=== PATIENT | female | born 1975 | race Caucasian/White ===

== ENCOUNTER → 2023-02-26 | Outpatient (CLI) | payer OTHER, SELFPAY ==
--- NOTE | 2023-02-26 13:16 | VDLE_ITS ---
Reason For Study: LOCALIZED SWELLING RIGHT GSV is normal. CFV is compressible, spontaneous, phasic, competent and demonstrates normal augmentation. FV is compressible, spontaneous, phasic, competent and demonstrates normal augmentation. POP V is compressible, spontaneous, phasic, competent and demonstrates normal augmentation. T/P Trunk is compressible. PTV is compressible. RT PerV is compressible. NON-VASCULAR structure on anterior knee measuring 1.57 x 0.47 in transverse. NON- VASCULARE continues down below knee in saggital plane. Procedure This is a venous duplex using B-mode, color flow and spectral Doppler. Exam performed in department. A preliminary report was called and/or faxed to Dr. Mcnamara @ [phone] & Dr. Croft @ [phone]. VL/Venous Duplex US, Unilateral Interpretation Summary Deep veins of the right lower extremity are patent and compressible segmentally . There is no evidence of right lower extremity deep vein thrombosis. Valvular competence radha ears intact within the proximal deep venous system on the right . The right great saphenous vein a ppears patent and compressible segmentally. A non-vascular structure is noted on the right anteri or knee, measuring 1.57 cm x 0.47 cm. This may represent a hematoma or seroma. Clinical correlatio n is advised. Ordering Physician: Van Mcnamara Referring Physician: Blanca Croft Performed By: Chelsea Irwin, EFREN, RVT
== END | disposition home or self-care (01) ==
PROVIDERS: PCP Nurse Practitioner Family; Referring Provider Specialist; Visit Provider Specialist
DX: R22.41 Localized swelling, mass and lump, right lower limb (principal)
CPT/HCPCS: 93971

== ENCOUNTER 2023-03-20 05:59 | Day surgery (SDC) | payer OTHER, SELFPAY ==
[2023-03-20 06:32] VITALS: BP 149/79; PULSE 74; RESP 16; TEMP 36.3; O2SAT 98; BMI 43.2
[2023-03-20] MEDS: Lactated Ringers 1,000 ML 15 ML IV (06:41)
[2023-03-20 07:03] LABS: Internal QC Validated? YES +Cl - CLEAR BKGD; Pregnancy, Urine Negative Negative
--- NOTE | 2023-03-20 07:13 | HP.PCM_ITS ---
History and Physical Date of Admission: 03/20/23 [facility] [address] [place] [address] OFFICE VISIT Date of Service: 02/12/23 MR#: [id number] Acct: [id number] Name: VICTOR HUGO MYERS Rep #: [id number] : 1975 Provider: Dr. Ze Lockhart DO Age/Sex: 47/F Location: [facility] [place] Status: Signed Intake Vital Signs 02/02/2309:01 Height 5 ft 6 in Weight: 266 lb BMI 42.9 Intake Visit Reasons: bi lat hands Chief Complaint: Bilateral hands Principal Gifts Officer Required: No Accompanied by: Is patient in pain?: Yes Pain scale (1-10): 3 Allergies No Known Allergies Allergy (Unverified 02/12/23 15:45) Medications ascorbate calcium (vitamin C) 500 mg tablet 500 mg PO DAILY 01/03/23 [History Confirmed 02/12/23] cholecalciferol (vitamin D3) 10 mcg (400 unit) capsule 10 mcg PO DAILY 01/03/23 [History Confirmed 02/12/23] fluoxetine 20 mg capsule cap PO 01/03/23 [History Confirmed 02/12/23] losartan 50 mg-hydrochlorothiazide 12.5 mg tablet ea PO 01/03/23 [History Confirmed 02/12/23] meloxicam 7.5 mg tablet ea PO 01/03/23 [History Confirmed 02/12/23] venlafaxine 75 mg capsule,extended release 24 hr 75 mg PO 01/03/23 [History Confirmed 02/12/23] vitamin B complex (B Complex-Vitamin B12 tablet) 1 tab PO DAILY 01/03/23 [History Confirmed 02/12/23] hydrocodone-acetaminophen 5-325mg 5mg-325mg tab PO 02/02/23 [History Confirmed 02/12/23] PFSH Surgical History Hx of cholecystectomy Social History (Updated 02/12/23 @ 15:47 by Deepa Pate) Smoking Status: Never smoker alcohol intake: current alcohol intake frequency: holidays/special occasions only substance use type: does not use what type of physical activity do you participate in: none do you feel safe at home: Yes HPI bi lat hands Details: Parts of this documentation were recorded by a scribe, this documentation accurately reflects the service provided and the decisions made by me, Dr. Ze Lockhart, 02/12/23 0856. VICTOR HUGO MYERS is a 47 year old F here today for B/L carpal tunnel syndrome that has worsened over the last 4 months. Intermittent frequent numbness, tingling to B/L hands and achiness to wrists. Constant weakness to B/L hands. Moderate to severe pain B/L elbows at night that is aching and stabbing. Pain exacerbated with use of hands such as typing or writing. Some relief with stretching or repositioning. Rates pain 2 out of ten today. Nerve testing at [facility] at 02/05/23. She has been using a wrist brace for a month on the right side without releif. SHe has been taking meloxicam but has tried ibuprofen as well. Numbess and tingling into the right and left 1st through 3rd fingers. Ortho Exam General General: Yes no acute distress Neurologic: Yes alert and Yes oriented x3 Psychologic: Yes reasonable and appropriate Right Wrist/Hand Skin/Wound: Yes CDI, No Swelling, No Ecchymosis and Yes capillary refill normal Right Wrist: Yes Durken's Test, Tinel's and Phalen's; No Thenar Atrophy or Hypothenar Atrophy Left Wrist/Hand Skin/Wound: Yes CDI, No Swelling, No Ecchymosis, Yes nail intact and Yes capillary refill normal Left Wrist: Yes Durken's Test, Yes Tinel's and Yes Phalen's; No Thenar Atrophy and No Hypothenar Atrophy Head: Normocephalic Atraumatic Chest: symmetrical rise, non-labored breathing, no audible wheeze Abdomen: no guarding, non-rigid Supplemental Info Patient did have x-ray of her cervical spine demonstrating degenerative changes however these are on a disc and I do not have the report or the images 02/05/2023 EMG bilateral upper extremity: Right median mononeuropathy consistent with moderate to severe carpal tunnel syndrome. Left median mononeuropathy consistent with diagnosis of moderate carpal tunnel syndrome. No cervical radiculopathy no myopathic features 02/02/2023 x-ray right knee: There is medial joint space narrowing 01/01/2023 MRI right knee from [facility] sports medicine: There is a medial meniscal radial posterior root tear. Medial compartment diffuse high- grade chondromalacia. Patellar medial facet chondral fissures and flaps. Lateral subluxation of the patella Coding Level of Care Code Off vis,est,level 4 Diagnoses Carpal tunnel syndrome on both sides G56.03 Assessment and Plan Assessment and Plan (1) Carpal tunnel syndrome on both sides: Status: Acute Plan Patient educated that her EMG shows right moderate to severe carpal tunnel and left moderate carpal tunnel syndrome. Patient educated that the occasional numbness and tingling into the elbows may or may not subside with the carpal tunnel release or the numbness into the elbow may remain and if the pain/numbness doesn't subside after the CTR then there is another cause to the numbness and pain. Recommended right carpal tunnel release since she has tried and failed conservative care including NSAIDs and bracing and severity on EMG, Reviewed the pre-operative plans with the patient. Risks and benefits of the procedure were fully explained, including but not limited to infection, incisional hypersensitivity and pillar pain for several months neurovascular injury, continued pain, arthritis, stiffness, need for further surgery, re- injury, DVT, PE, general risks of anesthesia. The patient understands all the risks and does wish to proceed with written consent for right carpal tunnel release and left carpal tunnel injection. Discussed the goal of surgery is to prevent worsening of symptoms. Discussed the lifting restrictions. 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 She is having a right knee scope Sunday and will be on crutches for a couple days post op. once she feels that she is recovered from the right knee scope then she can proceed with right CTR. She wishes to proceed with the surgery on 03/20/23. Follow up 2 weeks post op or sooner if pain, swelling, numbness or associated symptoms, or concerns develop. All questions answered. Patient in agreement of plan. 02/12/23 1634 <Electronically signed by Ze Lockhart DO> Date Ze Lockhart DO Cosigner Signature: Date (if applicable) I have examined the patient and the H&P has been reviewed. There are no clinical changes since date of exam.
[2023-03-20] MEDS: Cefazolin 2 GM in 0.9% Normal Saline 100 ML IV (07:29)
[2023-03-20] MEDS: Lidocaine 1%/Epi 1:200 (30ml) 30 ML AMPUL (07:48)
[2023-03-20] MEDS: MethylPREDNISolone Acetate 40 MG/ML Vial IM (08:01)
--- NOTE | 2023-03-20 08:05 | PCM.OP.BLANK ---
Operative Report Date of Procedure: 03/20/23 Preoperative diagnosis; bilateral carpal tunnel syndrome Postoperative diagnosis; same Procedure: 1 right open carpal tunnel release 2. Left carpal tunnel injection Anesthesia: Local with MAC Tourniquet time; 13 minutes 250 mm Hg Complications: None Indication for procedure; This is a 47-year-old female with long-standing symptoms consistent with carpal tunnel syndrome the patient did have electrodiagnostic evidence of this and has failed conservative treatment. Risks benefits and alternatives were reviewed including risks of bleeding infection nerve artery tissue damage need for further surgery and continued pain and symptoms, hypersensitivity to scar and Pillar pain. Procedure; The patient was met in the preoperative holding area the operative extremity was identified by both patient and physician and was marked the patient was met by anesthesia and brought back to the operating room and transferred to the operating table in the supine position. Anesthesia was started. A well-padded tourniquet was placed on the operative upper extremity. The patient was prepped and draped in the usual sterile fashion. A timeout was called to ensure the proper patient procedure and extremity were being contemplated. 1% lidocaine with epinephrine was injected into the incisional area. An Esmarch was used to exsanguinate the extremity. The tourniquet was inflated to 250 mmHg. A midline incision was made with a 15 blade scalpel between the thenar and hypothenar eminence. This was carried down through the skin and subcutaneous tissue. Ivan retractors were then used, a deep blade scalpel was used to make a deep incision in the palmar aponeurosis. The ivan retractors were then placed deep to this and the transverse carpal ligament was identified a perforation was made with a scalpel and a Littler scissors were used to complete the release of the transverse carpal ligament distally under direct visualization with the tips facing ulnarly until the perivascular fat was reached. Then turning our attention proximally using a tension slide technique the proximal extent of the transverse carpal ligament was released . There was noted to be hypertrophy of the transverse carpal ligament. The wound was thoroughly irrigated and was closed with 4-0 nylon vertical mattress stitches. Dressing was applied in the form of xeroform 4 x 4, web roll and an lakeisha wrap. Tourniquet was let down there is no intraoperative complications. The left hand carpal tunnel area was prepped with alcohol and injected with 1/2 cc of 40 mg/cc Depo-Medrol and 1/2 cc 0.25% bupivacaine plain Band-Aid was applied. patient tolerated the procedure well and was transferred to the PACU. All counts were correct.
--- NOTE | 2023-03-20 08:07 | EX.PCM.DISCH ---
Discharge Instructions Diet Discharge Diet: No restrictions Dressing / Incision Call your doctor if you observe: Shortness of breath and Chest pain Additional Dressing/Incision Instructions:: Ice and elevate operative extremity next 72 hours. Keep dressing on clean and dry for 48 hours then may remove and allow warm soapy water to rinse over incision but do not submerge until sutures are out. Then apply bandaid over incision and change daily. encourage finger range of motion. Not lift more than 1/2 pound. Minimize narcotic use only as needed and directed, may use OTC NSAID and Tylenol to supplement/substitute for pain control. Follow Up Care Please Follow Up With: Ze Lockhart DO When: 2 weeks Test Results: Test results from this visit will be discussed in further detail at your follow-up appointment, if applicable. Discharge Plan Admission Primary Reason for Your Visit: Right open carpal tunnel release Attending Provider: Ze Lockhart Primary Care Provider: Blanca Croft NP Discharge Orders/Prescriptions Prescriptions: New hydrocodone-acetaminophen 5-325 mg tablet 1 - 2 tab PO Q4H PRN (Reason: pain) 4 Days Qty: 14 0RF Discontinued hydrocodone-acetaminophen 5-325 mg tablet 1 tab PO PRN PRN (Reason: pain) No Action fluoxetine 20 mg capsule 20 mg PO DAILY losartan-hydrochlorothiazide 50-12.5 mg tablet 1 tab PO DAILY Patient Comments: TAKE 1 TABLET BY MOUTH ONCE DAILY meloxicam 7.5 mg tablet 7.5 mg PO BID Patient Comments: TAKE 1 TABLET BY MOUTH TWICE DAILY venlafaxine 75 mg capsule,extended release 24hr 75 mg PO DAILY cholecalciferol (vitamin D3) 10 mcg (400 unit) capsule 10 mcg PO DAILY vitamin B complex [B Complex-Vitamin B12] Tablet 1 tab PO DAILY ascorbate calcium (vitamin C) 500 mg tablet 500 mg PO DAILY Other Ambulatory Orders: ,Urine (Routine) Timeframe: [id number] Facility: [facility] - Location: Laboratory Ordered By: Dr. Joselito Lan Referrals / Follow Up: Blanca Croft NP, [employer] [Primary Care Provider] - Disposition Disposition (needs filled in before D/C Order can be placed): Home, Self Care
[2023-03-20 08:10] VITALS: BP 113/60; BP 149/79; PULSE 80; RESP 16; TEMP 36.5; O2SAT 92
[2023-03-20 08:15] VITALS: BP 111/72; BP 149/79; PULSE 75; RESP 16; O2SAT 94
[2023-03-20 08:20] VITALS: BP 113/80; BP 149/79; PULSE 83; RESP 16; O2SAT 95
[2023-03-20 08:25] VITALS: BP 117/58; BP 149/79; PULSE 78; RESP 16; TEMP 36.3; O2SAT 94
[2023-03-20 08:44] VITALS: BP 149/79
== END 2023-03-20 09:13 | disposition home or self-care (01) ==
LOC: SDC 05:59 → AC 06:01
PROVIDERS: Anesthesiology; PCP Nurse Practitioner Family; Referring Provider Orthopaedic Surgery; Visit Provider Orthopaedic Surgery
PROC: (CPT 64721; principal; 2023-03-20 07:15)
DX: G56.03 Carpal tunnel syndrome, bilateral upper limbs (principal); I10 Essential (primary) hypertension; Z79.899 Other long term (current) drug therapy
CPT/HCPCS: 64721; 20526; 01810; 81025; J7120; J2405

== ENCOUNTER 2024-06-03 08:50 | Day surgery (SDC) | payer OTHER, SELFPAY ==
[2024-06-03 09:15] VITALS: BP 138/83; PULSE 70; RESP 16; TEMP 35.9; O2SAT 98; BMI 43.7
[2024-06-03 09:33] LABS: Internal QC Validated? YES +Cl - CLEAR BKGD; Pregnancy, Urine Negative Negative
--- NOTE | 2024-06-03 09:40 | PRE.ANES_ITS ---
ASA Classification* ASA Classification ASA Classification: 3 Assessment & Plan Anesthesia* Anesthesia Assessment Anesthesia Assessment: Discussed sedation and/or anesthesia options, risks, benefits, and alternatives with patient/parents/legal guardian/POA. Questions invited. The patient/parents/legal guardian/POA seems to understand and agrees to proceed with anesthesia plan. Reviewed the physical assessment, medical history, allergy history and patient home medications list prior to surgery/procedure/anesthetic and documented any changes. Performed airway and anesthesia risk assessments. 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 When Was Last Pacemaker Check QUESTION #4 FULL TEXT: You/Your Family Experience fever (hyperthermia) with Anesthesia Last Oral Intake Last Oral intake: Last Oral Intake NPO since 19:00 06/03/24 09:15 Meds taken in AM with sips of No 06/03/24 09:15 water? Meds patient instructed to take am of surgery PONV PONV - dairy management specialist: PONV - dairy management specialist Female Yes 05/22/24 14:58 HX of Motion Sickness No 05/22/24 14:58 HX of N/V After Surgery No 05/22/24 14:58 Non-Smoker Yes 05/22/24 14:58 Duration of Surgery greater No 05/22/24 14:58 than 60 minutes Number of Risk Factors 2 05/22/24 14:58 PONV Score Moderate Risk 05/22/24 14:58 Height & Weight Height & Weight: Anesthesia: Height & Weight Height 5 ft 6 in 06/03/24 09:15 Weight: 123 kg 06/03/24 09:15 Body Mass Index (BMI) 43.7 06/03/24 09:15 Respiratory Assessment Respiratory Assessment - dairy management specialist: Respiratory Tract Infection Hx - dairy management specialist Hx Respiratory Tract Infection No 05/22/24 14:58 STOP Sleep Apnea STOP Sleep Apnea - dairy management specialist: STOP Sleep Apnea - dairy management specialist Hx Hypertension Yes: CONTROLLED WITH MED 05/22/24 14:58 Hx Sleep Apnea No 05/22/24 14:58 CPAP BIPAP Do you snore loudly (louder Yes 05/22/24 14:58 than talking or can be heard Do you often feel tired/ Yes 05/22/24 14:58 fatigued/ sleepy during daytime? Has anyone observed you stop No 05/22/24 14:58 breathing during sleep? STOP Results Positive 05/22/24 14:58 QUESTION #5 FULL TEXT : Do you snore loudly (louder than talking or can be heard through closed doors)? 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 Specify any problems Hx of Preganancy in last 3 No 05/22/24 14:58 Months Nurse Filling Out Transfusion DSCHRIBER 05/22/24 14:58 & Questions: Date: 05/22/24 05/22/24 14:58 Time: 14:59 05/22/24 14:58 Patient unable to answer at this time (ie. confused, unrespo /Reproduction History /Reproductive History - dairy management specialist: /Reproductive Hx- dairy management specialist Hx Now Gestational Age (in weeks): EDC: Hx Hx Para Hx Section SAB No 05/22/24 14:58 Active Medications Active Medications: Current Medications Generic Name Dose Route Start Last Admin Trade Name Freq PRN Reason Stop Dose Admin Cefazolin Sodium 3 gm/ N/A 30 mls @ 600 mls/hr 06/03/24 10:40 IV 06/03/24 10:42 [facility] Medical History Trigger thumb, right thumb Impingement of left shoulder Left shoulder pain Wears glasses Depression Anxiety Alcohol use Arthritis Back pain Non-smoker History of pain when walking History of echocardiogram Hypertension Home Medications ?Medication ?Instructions ?Recorded ?Last Taken ?Type ascorbate calcium (vitamin C) 500 500 mg PO DAILY 01/03/23 05/28/24 History mg tablet cholecalciferol (vitamin D3) 10 10 mcg PO DAILY 01/03/23 05/28/24 History mcg (400 unit) capsule losartan 50 mg-hydrochlorothiazide 1 tab PO DAILY 01/03/23 06/02/24 History 12.5 mg tablet vitamin B complex (B 1 tab PO DAILY 01/03/23 05/28/24 History Complex-Vitamin B12 tablet) magnesium 250 mg tablet 250 mg PO DAILY 07/06/23 05/28/24 History glucosamine-chondroitin 250 mg-200 1 tab PO BID 05/14/24 05/28/24 History mg tablet (Osteo Bi-Flex) meloxicam 7.5 mg tablet 15 mg PO DAILY 05/14/24 05/28/24 History potassium chloride 20 mEq 20 meq PO BID 06/03/24 06/02/24 History tablet,extended release (K-Tab) Allergy/AdvReac Type Severity Reaction Status Date / Time No Known Allergies Allergy Verified 06/03/24 09:13 Surgical History Hx of foot surgery History of carpal tunnel surgery of right wrist History of meniscectomy of right knee Hx of wisdom tooth extraction Hx of cholecystectomy Social History Smoking Status: Never smoker alcohol intake: current alcohol intake frequency: holidays/special occasions only substance use type: does not use what type of physical activity do you participate in: none do you feel safe at home: Yes Review of Systems (Anesthesia) ROS Narrative System reviewed and no additional complaints, except as documented.
[2024-06-03 09:45] VITALS: BP 138/83; PULSE 70; RESP 16; TEMP 35.9; O2SAT 98
--- NOTE | 2024-06-03 09:55 | PCM.HP.BLA ---
History and Physical Date of Admission: 06/03/24 [facility] [id number] [place] [address] OFFICE VISIT Date of Service: 05/14/24 MR#: [id number] Acct: [id number] Name: VICTOR HUGO MYERS Rep #: [id number] : 1975 Provider: Dr. Ze Lockhart DO Age/Sex: 48/F [place] [facility] [place] Status[place] Signed Intake Vital Signs 03/10/2408:12 Height 5 ft 6 in Weight: 284 lb 4 oz BMI 45.8 Intake Visit Reasons: LEFT WRIST Accompanied by: Self Is patient in pain?: Yes Pain scale (1-10): 2 Allergies No Known Allergies Allergy (Verified 05/14/24 08:18) Medications ?Medication ?Instructions ?Recorded ?Confirmed ?Type ascorbate calcium (vitamin C) 500 500 mg PO DAILY 01/03/23 03/10/24 History mg tablet cholecalciferol (vitamin D3) 10 10 mcg PO DAILY 01/03/23 03/10/24 History mcg (400 unit) capsule losartan 50 mg-hydrochlorothiazide 1 tab PO DAILY 01/03/23 03/10/24 History 12.5 mg tablet vitamin B complex (B 1 tab PO DAILY 01/03/23 03/10/24 History Complex-Vitamin B12 tablet) magnesium 250 mg tablet 250 mg PO DAILY 07/06/23 03/10/24 History glucosamine-chondroitin 250 mg-200 1 tab PO .BID 05/14/24 05/14/24 History mg tablet (Osteo Bi-Flex) meloxicam 7.5 mg tablet 15 mg PO ONCE 05/14/24 05/14/24 History PFSH Medical History Trigger thumb, right thumb Impingement of left shoulder Left shoulder pain Wears glasses Depression Anxiety Alcohol use Arthritis Back pain Non-smoker History of pain when walking History of edema History of echocardiogram Hypertension Surgical History Hx of foot surgery History of meniscectomy of right knee Hx of wisdom tooth extraction Hx of cholecystectomy Social History Smoking Status: Never smoker alcohol intake: current alcohol intake frequency: holidays/special occasions only substance use type: does not use what type of physical activity do you participate in: none do you feel safe at home: Yes HPI LEFT WRIST Details: This documentation accurately reflects the service provided and the decisions made by me, Dr. Ze Lockhart, DO 05/14/24 075. Part of today?s visit was documented by [ ], acting as scribe. VICTOR HUGO MYERS is a 48 year old F here today for Left Wrist. Patient states that her wrist pain has been going for a year. Patient states it wasn't as bad as her right so she didn't want to do anything about it. Patient now is ready to get surgery done for it. Patient is having numbness, tingling and pain in her wrist. Patient states that it is waking her up in the middle of the night and she is having more pain frequently during the day. 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 Patient did have a anglican doll test on her left wrist last year when they did her right and it shows moderate and her right wrist was severe. Ortho Exam General General: Yes no acute distress Neurologic: Yes alert and Yes oriented x3 Psychologic: Yes reasonable and appropriate Right Wrist/Hand Skin/Wound: No Swelling and No Ecchymosis WRIST: incision healed. Left Wrist/Hand Skin/Wound: No CDI, No Swelling, No Ecchymosis and No erythema Left Wrist: Yes ROM-Extension 0-60, Yes ROM-Flexion 0-80, Yes ROM-Pronation 0-80, Yes ROM-Supination 0-90, Yes Durken's Test, Yes Tinel's and Yes Phalen's; No Thenar Atrophy and No Hypothenar Atrophy WRIST: good wrist range of motion, able to make a first full finger flexion extension brisk capillary refill Constitutional: Well-developed; well-nourished; in no acute distress Eyes: No jaundice ENT: Nares patent; no obvious deformity Cardiovascular: No cyanosis; clubbing; or edema Lymphatic: No adenopathy in area of examination Skin: No rashes or lesions in the area of examination and intact Neurologic: Alert and oriented x 3 Psychiatric: Mood and affect appropriate Supplemental Info 03/10/2024 x-ray lumbar spine:Severe multilevel facet arthrosis, advanced L5-S1 degenerative disc disease moderate L4-L5 degenerative disc disease 03/10/2024 x-ray right hip: Preserved joint space no acute finding 03/20/2023 : Dr. Lockhart Procedure: 1 right open carpal tunnel release 2. Left carpal tunnel injection Patient did have x-ray of her cervical spine demonstrating degenerative changes however these are on a disc and I do not have the report or the images 02/05/2023 EMG bilateral upper extremity: Right median mononeuropathy consistent with moderate to severe carpal tunnel syndrome. Left median mononeuropathy consistent with diagnosis of moderate carpal tunnel syndrome. No cervical radiculopathy no myopathic features 02/02/2023 x-ray right knee: There is medial joint space narrowing 01/01/2023 MRI right knee from [facility] sports medicine: There is a medial meniscal radial posterior root tear. Medial compartment diffuse high-grade chondromalacia. Patellar medial facet chondral fissures and flaps. Lateral subluxation of the patella Coding Level of Care Code Off vis,est,level 4 Diagnoses Carpal tunnel syndrome on both sides G56.03 Assessment and Plan Assessment and Plan (1) Carpal tunnel syndrome on both sides: Status: Acute Plan Spoke with the patient about the anatomy of the hand and wrist. Spoke with her about the Left carpal tunnel release and recovery. She has a half pound restriction for 2 weeks and then a 5 pound restriction for 1 week. She should work on range of motion of her fingers immediately to prevent stiffness. She is able to drive if she can safely control the vehicle. We will schedule the patient for surgery on 06/03/24. Reviewed the pre-operative plans with the patient. Risks and benefits of the procedure were fully explained, including but not limited to infection, neurovascular injury, continued pain, arthritis, stiffness, need for further surgery, re-injury, DVT, PE, general risks of anesthesia, incisional hypersensitivity and pillar pain continued symptoms. The patient understands all the risks and does wish to proceed with written consent. Follow up for 2 week post op or sooner if pain, swelling, numbness or associated symptoms, or concerns develop. All questions answered. Patient in agreement of plan. 05/14/24 0908 <Electronically signed by Ze Lockhart DO> Date I have examined the patient and the H&P has been reviewed. There are no clinical changes since date of exam. Ze Abebe Signature: Date (if applicable)
[2024-06-03] MEDS: Cefazolin 3 GM in Syringe 1 EACH IV (10:32)
[2024-06-03] MEDS: Bupiv/Epi 0.25% 30 ML Vial (10:44)
--- NOTE | 2024-06-03 11:02 | PCM.OPRPT ---
Operative Report (Standard) Operative Information Surgery/Procedure Performed: Left carpal tunnel Surgeon: Ze Lockhart Date of Procedure: 06/03/24 Procedure Start Time: 10:45 Procedure Stop Time: 10:58 Pre-Operative Diagnosis: Left carpal tunnel Post-Operative Diagnosis: Same Select all DRAINS/GRAFTS/IMPLANTS that apply: None Type of Anesthesia: Local MAC and MAC Estimated Blood Loss: 1 Specimen collected: No Description of surgery: Preoperative diagnosis; left carpal tunnel syndrome Postoperative diagnosis; same Procedure: Left open carpal tunnel release Anesthesia: Local with MAC Tourniquet time; 12 minutes 250 mm Hg Complications: None Indication for procedure; This is a 48-year-old female with long-standing symptoms consistent with carpal tunnel syndrome the patient did have electrodiagnostic evidence of this and has failed conservative treatment. Risks benefits and alternatives were reviewed including risks of bleeding infection nerve artery tissue damage need for further surgery and continued pain and symptoms, hypersensitivity to scar and Pillar pain. Procedure; The patient was met in the preoperative holding area the operative extremity was identified by both patient and physician and was marked the patient was met by anesthesia and brought back to the operating room and transferred to the operating table in the supine position. Anesthesia was started. A well-padded tourniquet was placed on the operative upper extremity. The patient was prepped and draped in the usual sterile fashion. A timeout was called to ensure the proper patient procedure and extremity were being contemplated. 0.5 percent Marcaine with epinephrine was injected into the incisional area. An Esmarch was used to exsanguinate the extremity. The tourniquet was inflated to 250 mmHg. A midline incision was made with a 15 blade scalpel between the thenar and hypothenar eminence. This was carried down through the skin and subcutaneous tissue. Ivan retractors were then used, a deep blade scalpel was used to make a deep incision in the palmar aponeurosis. The ivan retractors were then placed deep to this and the transverse carpal ligament was identified a perforation was made with a scalpel and a Littler scissors were used to complete the release of the transverse carpal ligament distally under direct visualization with the tips facing ulnarly until the perivascular fat was reached. Then turning our attention proximally using a tension slide technique the proximal extent of the transverse carpal ligament was released . There was noted to be hourglass configuration to the median nerve and hypertrophy of the transverse carpal ligament without other findings. The wound was thoroughly irrigated and was closed with 4-0 nylon vertical mattress stitches. Dressing was applied in the form of xeroform 4 x 4, web roll and an lakeisha wrap. Tourniquet was let down there is no intraoperative complications patient tolerated the procedure well and was transferred to the PACU. All counts were correct. Surgical Findings: Hypertrophy of transverse carpal ligament Grip Assembler graphics editor: Yes Healthcare Architect: Amandeep Bustos Tasks completed by floor covering printer assistant: Closing Complications Complications: No
--- NOTE | 2024-06-03 11:03 | DCINST_ITS ---
Discharge Instructions Diet Discharge Diet: No restrictions Dressing / Incision Call your doctor if you observe: Shortness of breath and Chest pain Additional Dressing/Incision Instructions:: Ice and elevate operative extremity next 72 hours. Keep dressing on clean and dry for 48 hours then may remove and allow warm soapy water to rinse over incision but do not submerge until sutures are out. Then apply bandaid over incision and change daily. encourage finger range of motion. Not lift more than 1/2 pound. Minimize narcotic use only as needed and directed, may use OTC NSAID and Tylenol to supplement/substitute for pain control. Follow Up Care Please Follow Up With: Ze Lockhart DO When: 2 weeks Test Results: Test results from this visit will be discussed in further detail at your follow- up appointment, if applicable. Discharge Plan Admission Primary Reason for Your Visit: Left carpal tunnel release Attending Provider: Ze Lockhart Primary Care Provider: Blanca Croft NP Instructions Print Language: Belarusian Discharge Orders/Prescriptions Prescriptions: New oxycodone 5 mg tablet 5 - 10 mg PO Q4H PRN (Reason: pain) 7 Days Qty: 7 0RF No Action losartan-hydrochlorothiazide 50-12.5 mg tablet 1 tab PO DAILY Patient Comments: TAKE 1 TABLET BY MOUTH ONCE DAILY cholecalciferol (vitamin D3) 10 mcg (400 unit) capsule 10 mcg PO DAILY vitamin B complex [B Complex-Vitamin B12] Tablet 1 tab PO DAILY ascorbate calcium (vitamin C) 500 mg tablet 500 mg PO DAILY meloxicam 7.5 mg tablet 15 mg PO DAILY Patient Comments: TAKE 1 TABLET BY MOUTH TWICE DAILY magnesium 250 mg tablet 250 mg PO DAILY glucosamine-chondroitin [Osteo Bi-Flex] 250-200 mg tablet 1 tab PO BID Rx Instructions: give after food/meal potassium chloride [K-Tab] 20 mEq tablet extended release 20 meq PO BID Referrals / Follow Up: Blanca Croft NP, [facility] [Primary Care Provider] - Disposition Disposition (needs filled in before D/C Order can be placed): Home, Self Care
--- NOTE | 2024-06-03 11:04 | PCM.POST.ANE ---
Anesthesia: Postop Eval I Current Vital Signs Temperature: 97 F Pulse Rate: 66 Blood Pressure: 103/58 Respiratory Rate: 18 Pulse Ox: 100 Oxygen Delivery Method: Simple Mask Oxygen Flow Rate (L/min): 6 Assessment Airway patent: Yes Spontaneous unlabored respirations: Yes Mental status: Awake and Calm nausea: No Vomiting: No Anesthesia Complication: No Fluid Hydration Crystalloid volume administer (ml): 10 Total IV fluid infused: 10 Progress Note Anesthesia document: Postop Eval 1 completed: Yes
[2024-06-03 11:05] VITALS: BP 103/58; BP 138/83; PULSE 66; RESP 16; RESP 18; TEMP 36.1; TEMP 36.9; O2SAT 100; O2SAT 95
[2024-06-03 11:15] VITALS: BP 138/83; BP 92/60; PULSE 61; RESP 16; O2SAT 97
[2024-06-03 11:16] VITALS: BP 109/57; BP 138/83; PULSE 64; RESP 16; TEMP 36.3; O2SAT 96
[2024-06-03 11:43] VITALS: BP 138/83
--- NOTE | 2024-06-03 15:59 | POSTOPAN2_ITS ---
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TETEOBJoseph Anesthesia Postop Eval I: Summary Notes Anesthesia Complication No 06/03/24 11:05 STRAW HAT BRIM CUTTER OPERATOR.TETEOBJoseph Anesthesia Complication Comment: Post-operative progress note Anesthesia: Postop Eval II Evaluation Mental status: Awake and Calm Pain Level: 1 nausea: No Vomiting: No Complications Anesthesia Complication: No
--- NOTE | 2024-06-03 15:59 | PCM.POSTANE2 ---
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 CLEANER.SKOBY Spontaneous unlabored Yes 06/03/24 11:05 METAL CLEANER.KARTHIK respirations Mental status Awake,Calm 06/03/24 11:05 METAL CLEANER.TETEOBJoseph nausea No 06/03/24 11:05 METAL CLEANER.TETEOBJoseph Vomiting No 06/03/24 11:05 METAL CLEANER.TETEOBJoseph Anesthesia Postop Eval I: Fluid Summary Crystalloid volume administer 10 06/03/24 11:05 METAL CLEANER.SKOBY (ml) Colloids volume administered ( ml) Blood Product volume administered (ml) Total IV fluid infused 10 06/03/24 11:05 METAL CLEANER.TETEOBJoseph Anesthesia Postop Eval I: Summary Notes Anesthesia Complication No 06/03/24 11:05 METAL CLEANER.TETEOBJoseph Anesthesia Complication Comment: Post-operative progress note Anesthesia: Postop Eval II Evaluation Mental status: Awake and Calm Pain Level: 1 nausea: No Vomiting: No Complications Anesthesia Complication: No
== END 2024-06-03 12:02 | disposition home or self-care (01) ==
LOC: SDC 08:51 → AC 08:53
PROVIDERS: Anesthesiology; PCP Nurse Practitioner Family; Referring Provider Orthopaedic Surgery; Visit Provider Orthopaedic Surgery
PROC: (CPT 64721; principal; 2024-06-03 10:25)
DX: G56.03 Carpal tunnel syndrome, bilateral upper limbs (principal); I10 Essential (primary) hypertension; F32.A Depression, unspecified; F41.9 Anxiety disorder, unspecified; M19.90 Unspecified osteoarthritis, unspecified site; Z90.49 Acquired absence of other specified parts of digestive tract; Z79.899 Other long term (current) drug therapy
CPT/HCPCS: 64721; 81025; A4216; J2405

== ENCOUNTER → 2025-06-04 | Outpatient (CLI) | payer OTHER, SELFPAY ==
--- NOTE | 2025-06-04 14:55 | MRI_ITS ---
PROCEDURE: SPINE LUMBAR (ROUTINE) 06/04/2025 REASON FOR EXAM: LUMBAR RADICULOPATHY TECHNIQUE: Procedure Code: MRISPL Modality: MR Procedure: SPINE LUMBAR (ROUTINE) COMPARISON: None. FINDINGS: Vertebrae: Modic changes type 2 at the opposite endplates of L5-S1. Alignment: Anatomical. Conus Medullaris: Preserved in height and signal. L1-2: No foraminal or canal stenosis. L2-3: Disc bulge. Mild inferior bilateral foramina stenosis. Facet joint arthropathy. L3-4: Disc bulge. Facet joint arthropathy. Ligamentum flavum hypertrophy. Mild inferior bilateral foramina stenosis. L4-5: Right paracentral disc protrusion measures 3 mm. Facet joint arthropathy. Severe bilateral foramina stenosis and mass-effect upon the exiting nerves. Narrowing of the right subarticular space. No significant canal stenosis. L5-S1: Disc desiccation. Disc bulge. Facet joints arthropathy. Mild bilateral foramina stenosis. No significant canal stenosis. Sacrum: Unremarkable. MRI/Spine Lumbar (Routine) IMPRESSION: Severe bilateral foramina stenosis and mass-effect upon the exiting nerves at L 4-L5. Right paracentral disc protrusion measures 3 mm. Reading Location: [id number]
== END | disposition home or self-care (01) ==
LOC: MRI 14:47
PROVIDERS: PCP Nurse Practitioner Family; Referring Provider Anesthesiology Pain Medicine; Visit Provider Anesthesiology Pain Medicine
DX: M54.16 Radiculopathy, lumbar region (principal)
CPT/HCPCS: 72148